=== PATIENT | male | born 1965 | race Caucasian/White ===

== ENCOUNTER 2017-01-30 07:13 | Day surgery (SDC) | payer BC ==
[2017-01-30] MEDS ORDERED: Sodium Chloride 0.9% 10 ML Syringe FLUSH PRN (07:30)
[2017-01-30] MEDS: Lactated Ringers 1,000 ML IV SCH ×3 (07:55→21:11)
[2017-01-30] MEDS ORDERED: Succinylcholine/Normal Saline 200 MG/10 ML Syringe IV ONE (08:45)
[2017-01-30] MEDS ORDERED: fentaNYL 100 MCG/2 ML SDV IV ONE (08:45)
[2017-01-30] MEDS ORDERED: cefOXitin 2 GM in Sodium Chloride 0.9% 100 ML IV ONE (08:45)
[2017-01-30] MEDS ORDERED: Propofol 200 MG/20 ML SDV IV ONE (08:45)
[2017-01-30] MEDS ORDERED: Ondansetron 4 MG/2 ML SDV IVPUSH ONE (08:45)
[2017-01-30] MEDS ORDERED: Neostigmine Methylsulfate 1 MG/ML 5 ML Syringe IV ONE (08:45)
[2017-01-30] MEDS ORDERED: Lactated Ringers 1,000 ML IV ONE (08:45)
[2017-01-30] MEDS ORDERED: Midazolam 1 MG/ML 2 ML SDV IV ONE (08:45)
[2017-01-30] MEDS ORDERED: Rocuronium 50 MG/5 ML Vial IV ONE (08:45)
[2017-01-30] MEDS ORDERED: Glycopyrrolate 1 MG Tab PO ONE (08:45)
[2017-01-30] MEDS ORDERED: Dexamethasone 4 MG/ML 5 ML MDV IVPUSH ONE (08:45)
[2017-01-30] MEDS ORDERED: Lidocaine 1% with EPINEPHrine 1:100,000 20 ML MDV INJECT ONE (09:09)
[2017-01-30] MEDS ORDERED: Bupivacaine 0.5% 30 ML SDV INJECT ONE (09:09)
[2017-01-30] MEDS ORDERED: Ondansetron 4 MG/2 ML SDV IVPUSH PRN (10:20)
--- NOTE | 2017-01-30 10:20 | PCM.OPNOTE ---
- General Post-Op/Procedure Note Date of Surgery/Procedure: 01/30/17 Operative Procedure(s): lap cholecystectomy with lysis of adhesions. 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 Complications: None Condition: Good Free Text/Narrative:: see dictation
[2017-01-30] MEDS ORDERED: Promethazine 25 MG/ML SDV IV PRN (10:32)
[2017-01-30] MEDS ORDERED: Morphine 4 MG/ML Syringe IVPUSH PRN (10:32)
[2017-01-30] MEDS ORDERED: hydrOXYzine HCl 50 MG/ML SDV IM PRN (10:32)
[2017-01-30] MEDS: Morphine 2 MG/ML Syringe IVPUSH PRN ×3 (10:55→11:15)
--- NOTE | 2017-01-30 15:06 | OR ---
DATE OF OPERATION: 01/30/2017 SURGEON: Terrence Yip MD PROCEDURE PERFORMED: Laparoscopic cholecystectomy with lysis of adhesions. PREOPERATIVE DIAGNOSIS: Gallbladder polyps. POSTOPERATIVE DIAGNOSIS: Gallbladder polyps. INDICATIONS FOR PROCEDURE: This is a 51-year-old white male who is referred with history of right upper quadrant abdominal pain. He was found to have multiple polyps in his gallbladder. He was offered and accepted laparoscopic cholecystectomy. Of note, the patient has had a right nephrectomy as well as a lower midline incision from previous abdominal surgery. 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 Multiple adhesions to the anterior abdominal wall were also identified. A total of 10 mL of a 1:1 mixture of 1% lidocaine with epinephrine and 0.5% bupivacaine was used to infiltrate the trocar sites. DESCRIPTION OF OPERATION: After an excellent general anesthetic was administered, the patient was prepped and draped in the usual sterile manner. A 1:1 mixture of 1% lidocaine with 0.5% bupivacaine was used to infiltrate the area just below the umbilicus. A 2-cm incision was then made using a #15 scalpel blade. The underlying subcu fat was bluntly dissected and 2 stay sutures of 0 Vicryl were placed on either side of the midline fascia, which was then elevated. This was then incised, and the abdominal cavity was entered. The trocar was inserted into the patient's abdomen and, after digital palpation, demonstrated clear field. The patient's abdomen was insufflated to 15 mmHg using CO2. He was placed in reverse Trendelenburg position. On inserting the scope, the patient had some adhesions on the right side, however, on the left side, this area was clear. We were able to visualize the midline. A 5-mm trocar was inserted in the midline just below the epigastrium. An additional port was placed in the right upper quadrant to facilitate our adhesiolysis. After the second port was placed, a LigaSure was used to divide the round ligament of the liver. The adhesions were carefully taken down using the LigaSure mobilizing the transverse colon, which was adhered to the anterior abdominal wall. After dissecting enough tissue free to allow insertion of our right subcostal trocars was completed, these trocars were inserted at the proximal level of the midclavicular and anterior axillary line by infiltrating with more local, making a skin incision, and then inserting our trocars. The gallbladder was then grasped and retracted in a cephalad fashion. Some filmy adhesions were taken down. The infundibulum was grasped, and the cystic duct was dissected free. There were several small finger-like vessels that were coming out. Further dissection revealed what appeared to be a right aberrant hepatic artery with several small branches. The main artery itself was noted to track along the gallbladder and then dive into the parenchyma of the right lobe of the liver. The small branches were divided with the LigaSure. The cystic duct was then clipped, 2 proximally and 1 distally, prior to transection. L- hook cautery dissection was then carried out dissecting the gallbladder free from the gallbladder fossa. The specimen was passed into a specimen bag and then delivered out through the umbilicus. The area was irrigated. There was some oozing on the liver bed, which was controlled with electrocautery. We did pack the bed with some Surgicel. After ensuring excellent hemostasis, the trocars were removed. The midline periumbilical incision was closed with a [id number] 0 Vicryl. [place] were used to close the skin. Needle, sponge, and instrument counts were reported as correct. The patient will be watched overnight just because of the adhesiolysis, to ensure that there are no any untoward events. /[id number] /ARNIEL
[2017-01-30] MEDS ORDERED: HYDROmorphone 2 MG/ML SDV IVPUSH PRN (15:44)
--- NOTE | 2017-01-30 15:47 | PCM.SN ---
- Free Text/Narrative Note: still with some abd pain but it is better. tolerating clear liquid diet. will add pain meds [place] and change to dilaudid for breakthrough pain.
[2017-01-30] MEDS: Acetaminophen/HYDROcodone 325-10 MG Tab PO PRN ×2 (17:19→21:06)
[2017-01-31] MEDS: Acetaminophen/HYDROcodone 325-10 MG Tab PO PRN ×2 (04:09→08:28)
[2017-01-31] MEDS: Lactated Ringers 1,000 ML IV SCH (05:19)
--- NOTE | 2017-01-31 07:52 | PCM.SURGPN ---
- General Info Date of Service: 01/31/17 POD#: 1 Functional Status: Reports: pain controlled, tolerating diet - Review of Systems General: Reports: No Symptoms HEENT: Reports: no symptoms Pulmonary: Reports: no symptoms Cardiovascular: Reports: No Symptoms Gastrointestinal: Reports: No symptoms - Patient Data Vitals - most recent: Last Vital Signs Temp 36.7 C 01/31/17 04:00 Pulse 62 01/31/17 04:00 Resp 18 01/31/17 04:00 BP 94/59 L 01/31/17 04:00 Pulse Ox 94 L 01/31/17 04:00 Weight - most recent: 99.201 kg I&O - last 24 hours: Intake & Output 01/30/17 01/31/17 01/31/17 22:59 06:59 14:59 Intake Total 2638 1292 Output Total 1450 0 Balance 1188 1292 Lab Results last 24 hrs: Laboratory Results - last 24 hr 01/31/17 Range/Units 06:25 WBC 10.8 (4.5-12.0) X10-3/uL RBC 4.24 L (4.30-5.75) x10(6)uL Hgb 13.6 (11.5-15.5) g/dL Hct 39.6 (30.0-51.3) % MCV 93.4 (80-96) fL MCH 32.1 (27.7-33.6) pg MCHC 34.3 (32.2-35.4) g/dL RDW 12.6 (11.5-15.5) % Plt Count 191 (125-369) X10(3)uL MPV 8.9 (7.4-10.4) fL Neut % (Auto) 78.9 (46-82) % Lymph % (Auto) 12.6 L (13-37) % Baker % (Auto) 7.7 (4-12) % Eos % (Auto) 0 L (1.0-5.0) % Baso % (Auto) 1 (0-2) % Neut # (Auto) 8.5 H (1.6-8.3) # Lymph # (Auto) 1.4 (0.6-5.0) # Baker # (Auto) 0.8 (0.0-1.3) # Eos # (Auto) 0.0 (0.0-0.8) # Baso # (Auto) 0.1 (0.0-0.2) # Med Orders - Current: Current Medications Hydrocodone Bitart/Acetaminophen ([place] 325-10 Mg) 1 tab PO Q4H PRN PRN Reason: Pain Last Admin: 01/31/17 04:09 Dose: 1 tab Hydromorphone HCl (Dilaudid) 2 mg IVPUSH Q3H PRN PRN Reason: Breakthrough Pain Lactated Ringer's (Ringers, Lactated) 1,000 mls @ 125 mls/hr IV ASDIRECTED MICHAEL Last Admin: 01/31/17 05:19 Dose: 125 mls/hr Ondansetron HCl (Zofran) 4 mg IVPUSH Q6H PRN PRN Reason: Nausea/Vomiting Sodium Chloride (Saline Flush) 10 ml FLUSH ASDIRECTED PRN PRN Reason: Keep Vein Open Discontinued Medications Bupivacaine HCl (Marcaine 0.5%) 12 ml INJECT .STK-MED ONE Stop: 01/30/17 09:10 Last Admin: 01/30/17 09:09 Dose: 12 ml Hydroxyzine HCl (Vistaril) 50 mg IM ONETIME PRN PRN Reason: Nausea/Vomiting Cefoxitin Sodium 2 gm/ Sodium (Chloride) 100 mls @ 200 mls/hr IV ONETIME ONE Stop: 01/30/17 09:14 Last Admin: 01/30/17 08:42 Dose: 200 mls/hr Lidocaine/Epinephrine (Xylocaine 1% With Epinephrine 1:100,000) 12 ml INJECT .STK-MED ONE Stop: 01/30/17 09:10 Last Admin: 01/30/17 09:09 Dose: 12 ml Morphine Sulfate (Morphine) 3 mg IVPUSH Q4H PRN PRN Reason: Pain (severe 7-10) Last Admin: 01/30/17 13:28 Dose: 3 mg Morphine Sulfate (Morphine) 2 mg IVPUSH Q3M PRN PRN Reason: Abdominal Pain Last Admin: 01/30/17 11:15 Dose: 2 mg Promethazine HCl (Phenergan) 12.5 mg IV Q4H PRN PRN Reason: Nausea/Vomiting - Exam Wound/Incisions: dressing dry and intact General: alert, oriented Lungs: Clear to auscultation, Normal respiratory effort Cardiovascular: Regular Rate, Regular Rhythm Abdomen: bowel sounds present, soft, no tenderness, no distension - Problem List & Annotations (1) S/P laparoscopic cholecystectomy SNOMED Code(s): 862035472, 03136625, 939425558 Code(s): Z90.49 - ACQUIRED ABSENCE OF OTHER SPECIFIED PARTS OF DIGESTIVE TRACT Status: Acute Current Visit: Yes - Problem List Review Problem List Initiated/Reviewed/Updated: Yes - My Orders Last 24 Hours: Active Orders 24 hr Category Date Time Status Intake and Output [RC] 06,14,22 Care 01/30/17 10:21 Active Notify Provider Vital Signs [RC] PRN Care 01/30/17 10:21 Active Oxygen Therapy [RC] PRN Care 01/30/17 10:20 Active RT Incentive Spirometry [RC] Q2HWA Care 01/30/17 10:20 Active Ready for Discharge [RC] PER UNIT ROUTINE Care 01/31/17 07:47 Ordered Vital Signs [RC] 00,04,08,12,16,20 Care 01/30/17 10:20 Active Full Liquid Diet [DIET] Diet 01/30/17 Dinner Ordered Acetaminophen/HYDROcodone [[place] 325-10 MG] Med 01/30/17 15:44 Active 1 tab PO Q4H PRN HYDROmorphone [Dilaudid] Med 01/30/17 15:44 Active 2 mg IVPUSH Q3H PRN Lactated Ringers [Ringers, Lactated] 1,000 ml Med 01/30/17 07:30 Active IV ASDIRECTED Ondansetron [Zofran] Med 01/30/17 10:20 Active 4 mg IVPUSH Q6H PRN Sodium Chloride 0.9% [Saline Flush] Med 01/30/17 07:30 Active 10 ml FLUSH ASDIRECTED PRN Peripheral IV Insertion Adult [OM.PC] Routine Oth 01/30/17 07:30 Ordered SCD [Sequential Compression Device] [OM.PC] Routine Oth 01/30/17 15:59 Ordered Sequential Compression Device [OM.PC] Routine Oth 01/30/17 07:30 Ordered Medication Orders Hydrocodone Bitart/Acetaminophen ([place] 325-10 Mg) 1 tab PO Q4H PRN PRN Reason: Pain Last Admin: 01/31/17 04:09 Dose: 1 tab Admin: 05/25/17 21:06 Dose: 1 tab Admin: 01/30/17 17:19 Dose: 1 tab Hydromorphone HCl (Dilaudid) 2 mg IVPUSH Q3H PRN PRN Reason: Breakthrough Pain Lactated Ringer's (Ringers, Lactated) 1,000 mls @ 125 mls/hr IV ASDIRECTED MICHAEL Last Admin: 01/31/17 05:19 Dose: 125 mls/hr Infusion: 01/31/17 05:11 Dose: 125 mls/hr Admin: 01/30/17 21:11 Dose: 125 mls/hr Infusion: 01/30/17 21:11 Dose: 125 mls/hr Admin: 01/30/17 13:31 Dose: 125 mls/hr Infusion: 01/30/17 13:31 Dose: 125 mls/hr Admin: 01/30/17 07:55 Dose: 125 mls/hr Ondansetron HCl (Zofran) 4 mg IVPUSH Q6H PRN PRN Reason: Nausea/Vomiting Sodium Chloride (Saline Flush) 10 ml FLUSH ASDIRECTED PRN PRN Reason: Keep Vein Open - Assessment Assessment (Free Text/Narrative):: ready for discharge - Plan Plan (Free Text/Narrative):: see discharge plan
[2017-01-31 08:53] VITALS: BP 103/59
== END 2017-01-31 09:45 | disposition home or self-care (01) ==
LOC: FB.SDS 07:13 → FB.MS 11:30 → FB.SDS 01-31 09:45
PROVIDERS: ATTEND Surgery
DX: K82.4 Cholesterolosis of gallbladder (principal); K82.8 Other specified diseases of gallbladder; E66.9 Obesity, unspecified; E78.00 Pure hypercholesterolemia, unspecified; E78.5 Hyperlipidemia, unspecified; G47.33 Obstructive sleep apnea (adult) (pediatric); K21.9 Gastro-esophageal reflux disease without esophagitis; Z85.528 Personal history of other malignant neoplasm of kidney; Z90.5 Acquired absence of kidney; Z90.49 Acquired absence of other specified parts of digestive tract; Z98.890 Other specified postprocedural states
CPT/HCPCS: 36415; 47562; 85025; 88304; A9270; J0131; J0694; J1100; J2250; J2270; J2405; J2704; J3010; J7030; J7120

== ENCOUNTER 2017-08-19 19:10 | Inpatient (IN) | payer BC ==
[2017-08-19] MEDS ORDERED: FLU Vacc QS 2017-18 (36mos UP)/PF 60 MCG/0.5 ML Syringe IM ONE (20:00)
[2017-08-19] MEDS ORDERED: Sodium Chloride 0.9% 1,000 ML IV ONE (20:43)
[2017-08-19] MEDS ORDERED: Ondansetron 4 MG/2 ML SDV IVPUSH PRN (20:50)
[2017-08-19] MEDS ORDERED: Acetaminophen 325 MG Tab PO PRN (20:51)
[2017-08-19] MEDS ORDERED: Zolpidem 5 MG Tab PO PRN (20:53)
--- NOTE | 2017-08-19 21:01 | PCM.HP ---
H&P History of Present Illness - General Date of Service: 08/19/17 Admit Problem/Dx: Admission Diagnosis/Problem Admission Diagnosis/Problem Acute diverticulitis of intestine Source of Information: Patient History Limitations: Reports: No Limitations - History of Present Illness Initial Comments - Free Text/Narative: c/o lower abd pain x 2d and fever x 1d pt with known diverticulosis, no prior h/o diverticulitis not able to work past 2d, fever, no chills, no sweats, nl BM 1d ago no n/v poor appetite went to urgent care CT showed acute diverticulitis with associated peritonitis and a small 1.5 cm abscess, no free air abd fairly soft here with good BS given 1 liter NS in urgent care, sent directly to floor for admission last colonoscopy 02/18 PMH: RCC, b/l hearing loss, diverticulosis, dyslipidemia, BMI over 30, retinal detachment, JUANA, PSH: R nephrectomy 2006, appy, lap choly 01/22, eye surgery x 5 for foreign body in eye 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[employer], never smoked, 4-8 cans beer/wk, no street drugs no regular meds, nka Left Middle Back Pain Score (Numeric/FACES): 8 - Related Data Allergies/Adverse Reactions: Allergies Allergy/AdvReac Type Severity Reaction Status Date / Time No Known Allergies Allergy Verified 01/30/17 08:26 Home Medications: Home Meds Acetaminophen/HYDROcodone [[place] 325-5 MG] 1 - 2 tab PO Q6H PRN #30 tab [Rx] Past Medical History HEENT History: Reports: Impaired Vision, Other (See Below) Other HEENT History: 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 Cardiovascular History: Reports: High Cholesterol Respiratory History: Reports: Sleep Apnea Gastrointestinal History: Reports: Diverticulosis Genitourinary History: Reports: Renal Disease, Other (See Below) Other Genitourinary History: RIGHT NEPHRECTOMY Endocrine/Metabolic History: Reports: Obesity/BMI 30+ Oncologic (Cancer) History: Reports: Renal - Past Surgical History Other HEENT Surgeries/Procedures: Lens implant to right eye Cardiovascular Surgical History: Reports: None GI Surgical History: Reports: Appendectomy, Colonoscopy Male Surgical History: Reports: Nephrectomy Social & Family History - Family History Family Medical History: Noncontributory HEENT: Reports: Hearing Impairment, Impaired Vision Cardiac: Reports: [place] Respiratory: Reports: None Musculoskeletal: Reports: Arthritis Neurological: Reports: Parkinson's Oncologic: Reports: Prostate - Tobacco Use Smoking Status *Q: Never Smoker Second Hand Smoke Exposure: No - Caffeine Use Caffeine Use: Reports: Coffee Caffeine Use Comment: one coffe daily - Alcohol Use Days Per Week of Alcohol Use: 1 Number of Drinks Per Day: 1 Total Drinks Per Week: 1 - Recreational Drug Use Recreational Drug Use: No H&P Review of Systems - Review of Systems: Review Of Systems: See Below General: Reports: Fever, Malaise, Decreased Appetite HEENT: Reports: No Symptoms Pulmonary: Reports: No Symptoms Cardiovascular: Reports: No Symptoms Gastrointestinal: Reports: Abdominal Pain Genitourinary: Reports: No Symptoms Musculoskeletal: Reports: No Symptoms Skin: Reports: No Symptoms Psychiatric: Reports: No Symptoms Neurological: Reports: No Symptoms Hematologic/Lymphatic: Reports: No Symptoms Immunologic: Reports: No Symptoms Exam - Exam Exam: See Below - Vital Signs Vital Signs: Last Vital Signs Temp 37.6 C 08/19/17 19:34 Pulse 93 08/19/17 19:34 Resp 18 08/19/17 19:34 BP 110/64 08/19/17 19:34 Pulse Ox 93 L 08/19/17 19:34 Weight: 99.337 kg - Exam General: Alert, Oriented, 4 HEENT: Conjunctiva Clear, Mucosa Moist & [place], Nares Patent, Normal Nasal Septum , Other (R exotropia) Neck: Supple Lungs: Clear to Auscultation, Normal Respiratory Effort Cardiovascular: Regular Rate, Regular Rhythm, Normal S1, Normal S2, Tachycardia. No: Systolic Murmur, Diastolic Murmur, Gallop/S3, Gallop/S4 GI/Abdominal Exam: Other (good BS x 4, 1+ tender in RLQ with less tender suprapubic and LLQ, flanks and upper abd NT, no guard, no rebound) Back Exam: Normal Inspection, Full Range of Motion, NT Extremities: Normal Inspection, Normal Range of Motion, Non-Tender, No Pedal Edema Skin: Warm, Dry, Intact Neurological: Cranial Nerves Intact, Strength Equal Bilateral, Normal Speech, Normal Tone, Sensation Intact Neuro Extensive - Mental Status: Alert, Oriented x3, Normal Mood/Affect, Normal Cognition, Memory Intact Psychiatric: Alert, Normal Affect, Normal Mood *Q Meaningful Use (ADM) - VTE *Q VTE Criteria *Q: - Stroke *Q Stroke Criteria *Q: - AMI *Q AMI Criteria *Q: - Problem List (1) Acute diverticulitis SNOMED Code(s): 954973806 ICD Code: K57.92 - DVTRCLI OF INTEST, PART UNSP, W/O PERF OR ABSCESS W/O BLEED Status: Acute Current Visit: Yes (2) Acute peritonitis SNOMED Code(s): 43249675 ICD Code: K65.0 - GENERALIZED (ACUTE) PERITONITIS Status: Acute Current Visit: Yes (3) Intra-abdominal abscess SNOMED Code(s): 76470075 ICD Code: K65.1 - PERITONEAL ABSCESS Status: Acute Current Visit: Yes Problem List Initiated/Reviewed/Updated: Yes Orders Last 24hrs: Active Orders 24 hr Category Date Time Status Patient Status [ADT] Routine ADT 08/19/17 20:43 Ordered Oxygen Therapy [RC] PRN Care 08/19/17 20:43 Ordered Oxygen Therapy [RC] PRN Care 08/19/17 20:54 Ordered Pulse Oximetry [RC] PRN Care 08/19/17 20:45 Ordered Up ad [place] [RC] ASDIRECTED Care 08/19/17 20:43 Ordered VTE/DVT Education [RC] Per Unit Routine Care 08/19/17 20:43 Ordered VTE/DVT Education [RC] Per Unit Routine Care 08/19/17 20:54 Ordered Vital Signs [RC] Q4H Care 08/19/17 20:43 Ordered Vital Signs [RC] Q4H Care 08/19/17 20:54 Ordered Nothing per Oral After Midnight Diet [DIET] Diet 08/20/17 Breakfast Ordered BASIC METABOLIC PANEL,BMP [CHEM] DAILY Lab 08/20/17 05:11 Ordered BASIC METABOLIC PANEL,BMP [CHEM] DAILY Lab 08/21/17 05:11 Ordered BASIC METABOLIC PANEL,BMP [CHEM] DAILY Lab 08/22/17 05:11 Ordered BASIC METABOLIC PANEL,BMP [CHEM] DAILY Lab 08/23/17 05:11 Ordered BASIC METABOLIC PANEL,BMP [CHEM] DAILY Lab 08/24/17 05:11 Ordered CBC WITH AUTO DIFF [HEME] DAILY Lab 08/20/17 05:11 Ordered CBC WITH AUTO DIFF [HEME] DAILY Lab 08/21/17 05:11 Ordered CBC WITH AUTO DIFF [HEME] DAILY Lab 08/22/17 05:11 Ordered CBC WITH AUTO DIFF [HEME] DAILY Lab 08/23/17 05:11 Ordered CBC WITH AUTO DIFF [HEME] DAILY Lab 08/24/17 05:11 Ordered URINALYSIS W/MICROSCOPIC [UA W/MICROSCOPIC] [URIN] Lab 08/19/17 20:53 Uncollected Routine Acetaminophen [Tylenol] Med 08/19/17 20:51 Ordered 650 mg PO Q4H PRN Ciprofloxacin in D5W [Cipro in D5W 400 MG/200 ML] 400 Med 08/19/17 21:00 Ordered mg Premix Bag 1 bag IV Q12HR Enoxaparin [Lovenox] Med 08/19/17 20:45 Ordered 40 mg SUBCUT Q24H Morphine Med 08/19/17 20:50 Ordered 4 mg IVPUSH Q2H PRN Ondansetron [Zofran] Med 08/19/17 20:50 Ordered 4 mg IVPUSH Q4H PRN Sodium Chloride 0.9% @ 125 MLS/HR (1000ml) Med 08/19/17 20:45 Ordered Sodium Chloride 0.9% [Normal Saline] 1,000 ml IV ASDIRECTED Sodium Chloride 0.9% [Normal Saline] 1,000 ml Med 08/19/17 20:43 Ordered IV .BOLUS Zolpidem [Ambien] Med 08/19/17 20:53 Ordered 5 mg PO BEDTIME PRN metroNIDAZOLE/Normal Saline [Flagyl 500 MG in NS 100 ML Med 08/19/17 21:00 Ordered ] 500 mg Premix Bag 1 bag IV Q8H Resuscitation Status Routine Resus Stat 08/19/17 20:43 Ordered Medication Orders Acetaminophen (Tylenol) 650 mg PO Q4H PRN PRN Reason: Fever Enoxaparin Sodium (Lovenox) 40 mg SUBCUT Q24H MICHAEL Sodium Chloride (Normal Saline) 1,000 mls @ 125 mls/hr IV ASDIRECTED MICHAEL Sodium Chloride (Normal Saline) 1,000 mls @ 999 mls/hr IV .BOLUS ONE Stop: 08/19/17 21:43 Ciprofloxacin/Dextrose 400 mg/ (Premix) 200 mls @ 200 mls/hr IV Q12HR MICHAEL Metronidazole 500 mg/ Premix 100 mls @ 100 mls/hr IV Q8H MICHAEL Morphine Sulfate (Morphine) 4 mg IVPUSH Q2H PRN PRN Reason: Pain Ondansetron HCl (Zofran) 4 mg IVPUSH Q4H PRN PRN Reason: Nausea/Vomiting Assessment/Plan Comment:: admit, IVF, cipro and flagyl, pain management with MS, surgery consult in AM, plan d/w pt and
[2017-08-19] MEDS: Morphine 4 MG/ML Syringe IVPUSH PRN (21:17)
[2017-08-19] MEDS: Enoxaparin 40 MG/0.4 ML Syringe SUBCUT SCH (21:23)
[2017-08-19] MEDS: Ciprofloxacin in D5W 400 MG in Premix Bag 1 BAG IV SCH ×2 (21:25)
[2017-08-19] MEDS: Sodium Chloride 0.9% 10 ML Syringe FLUSH PRN (22:34)
[2017-08-19] MEDS: metroNIDAZOLE/Normal Saline 500 MG in Premix Bag 1 BAG IV SCH (22:34)
[2017-08-20] MEDS: Sodium Chloride 0.9% 1,000 ML IV SCH ×3 (00:05→16:51)
[2017-08-20] MEDS: metroNIDAZOLE/Normal Saline 500 MG in Premix Bag 1 BAG IV SCH ×3 (05:48→22:31)
[2017-08-20] MEDS: Morphine 4 MG/ML Syringe IVPUSH PRN ×3 (06:12→16:18)
[2017-08-20] MEDS: Ciprofloxacin in D5W 400 MG in Premix Bag 1 BAG IV SCH ×4 (08:46→21:12)
--- NOTE | 2017-08-20 09:25 | PCM.HP ---
H&P History of Present Illness - General Date of Service: 08/20/17 Source of Information: Patient, Old Records History Limitations: Reports: No Limitations - History of Present Illness Initial Comments - Free Text/Narative: This is a 52-year-old male patient with known history of diverticulosis. 2 days ago he started having some chills and some abdominal pain. He says he got worse and came to the walk-in clinic here at [place]. His diagnosed with diverticulitis. He was seen again in the ER and had a CAT scan that showed diverticulitis with localized paranasal some minimal collection of fluid but no gross abscess. Patient denies dysuria, pyuria, hematuria, nasal congestion, vomiting, nausea, diarrhea, hematochezia or melena. Nominal pain is a lower abdominal bilateral the same. 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 Cardiovascular History: Reports: High Cholesterol Respiratory History: Reports: Sleep Apnea Gastrointestinal History: Reports: Diverticulosis Genitourinary History: Reports: Renal Disease, Other (See Below) Other Genitourinary History: RIGHT NEPHRECTOMY Endocrine/Metabolic History: Reports: Obesity/BMI 30+ Oncologic (Cancer) History: Reports: Renal - Past Surgical History Other HEENT Surgeries/Procedures: Lens implant to right eye Cardiovascular Surgical History: Reports: None GI Surgical History: Reports: Appendectomy, Colonoscopy Male Surgical History: Reports: Nephrectomy Social & Family History - Family History Family Medical History: Noncontributory HEENT: Reports: Hearing Impairment, Impaired Vision Cardiac: Reports: ND Respiratory: Reports: None Musculoskeletal: Reports: Arthritis Neurological: Reports: Parkinson's Oncologic: Reports: Prostate - Tobacco Use Smoking Status *Q: Never Smoker Second Hand Smoke Exposure: No - Caffeine Use Caffeine Use: Reports: Coffee Caffeine Use Comment: one coffe daily - Alcohol Use Days Per Week of Alcohol Use: 1 Number of Drinks Per Day: 1 Total Drinks Per Week: 1 - Recreational Drug Use Recreational Drug Use: No H&P Review of Systems - Review of Systems: Review Of Systems: See Below General: Reports: Fever, Chills, Malaise, Decreased Appetite HEENT: Reports: No Symptoms Pulmonary: Reports: No Symptoms Cardiovascular: Reports: No Symptoms Gastrointestinal: Reports: Abdominal Pain Genitourinary: Reports: No Symptoms Musculoskeletal: Reports: No Symptoms Skin: Reports: No Symptoms Psychiatric: Reports: No Symptoms Neurological: Reports: No Symptoms Hematologic/Lymphatic: Reports: No Symptoms Immunologic: Reports: No Symptoms Exam - Exam Exam: See Below - Vital Signs Vital Signs: Last Vital Signs Temp 98.2 F 08/20/17 04:00 Pulse 90 08/20/17 04:00 Resp 18 08/20/17 04:00 BP 104/62 08/20/17 04:00 Pulse Ox 94 L 08/20/17 04:00 Weight: 218 lb - Exam General: Alert, Oriented, Cooperative HEENT: PERRLA, Hearing Intact, Posterior Pharynx Clear, Pupils Equal, TMs Clear Neck: Supple, Trachea Midline Lungs: Clear to Auscultation, Normal Respiratory Effort. No: Crackles, Rales, Rhonchi Cardiovascular: Regular Rate, Regular Rhythm, Normal S1, Normal S2. No: Systolic Murmur, Diastolic Murmur GI/Abdominal Exam: No Organomegaly, No Distention, No Mass, Rigid (Mild), Tender. No: Rebound Extremities: Normal Inspection, Normal Range of Motion, Non-Tender, No Pedal Edema Skin: Warm, Dry, Intact Neurological: Normal Speech, Normal Tone Neuro Extensive - Mental Status: Alert, Oriented x3, Normal Mood/Affect, Normal Cognition Psychiatric: Alert, Normal Affect, Normal Mood - Patient Data Lab Results Last 24 hrs: Laboratory Results - last 24 hr 08/19/17 08/20/17 08/20/17 Range/Units 19:30 06:20 06:20 WBC 14.6 H (4.5-12.0) X10-3/uL RBC 4.14 L (4.30-5.75) x10(6)uL Hgb 13.6 (11.5-15.5) g/dL Hct 38.4 (30.0-51.3) % MCV 92.6 (80-96) fL MCH 32.7 (27.7-33.6) pg MCHC 35.3 (32.2-35.4) g/dL RDW 12.6 (11.5-15.5) % Plt Count 156 (125-369) X10(3)uL MPV 8.9 (7.4-10.4) fL Neut % (Auto) 85.3 H (46-82) % Lymph % (Auto) 7.2 L (13-37) % [place] % (Auto) 7.1 (4-12) % Eos % (Auto) 0 L (1.0-5.0) % Baso % (Auto) 0 (0-2) % Neut # (Auto) 12.6 H (1.6-8.3) # Lymph # (Auto) 1.0 (0.6-5.0) # [place] # (Auto) 1.0 (0.0-1.3) # Eos # (Auto) 0.0 (0.0-0.8) # Baso # (Auto) 0.0 (0.0-0.2) # Sodium 139 (135-145) mmol/L Potassium 3.7 (3.5-5.3) mmol/L Chloride 106 (100-110) mmol/L Carbon Dioxide 24 (21-32) mmol/L BUN 17 (7-18) mg/dL Creatinine 1.4 H (0.70-1.30) mg/dL Est Cr Clr Drug Dosing 65.74 mL/min Estimated GFR (MDRD) 53 L (>60) BUN/Creatinine Ratio 12.1 (9-20) Glucose 124 H (80-116) mg/dL Calcium 8.1 L (8.6-10.2) mg/dL Urine Color Yellow (YELLOW) Urine Appearance Cloudy (CLEAR) Urine pH 6.0 (5.0-6.5) Ur Specific [place] 1.025 (1.010-1.025) Urine Protein Trace (NEGATIVE) mg/dL Urine Glucose (UA) Normal (NEGATIVE) mg/dL Urine Ketones 50 H (NEGATIVE) mg/dL Urine Occult Blood Large H (NEGATIVE) Urine Nitrite Negative (NEGATIVE) Urine Bilirubin Small H (NEGATIVE) Urine Urobilinogen 4 H (NEGATIVE) mg/dL Ur Leukocyte Esterase Negative (NEGATIVE) Urine RBC 5-10 (0) Urine WBC 0-5 (0) Ur Squamous Epith Cells Rare (NS,R,O) Amorphous Sediment Few Urine Bacteria Few H (NS) Result Diagrams: 08/20/17 06:20 08/20/17 06:20 *Q Meaningful Use (ADM) - VTE *Q VTE Criteria *Q: - Stroke *Q Stroke Criteria *Q: - AMI *Q AMI Criteria *Q: - Problem List (1) Acute diverticulitis SNOMED Code(s): 392383523 ICD Code: K57.92 - DVTRCLI OF INTEST, PART UNSP, W/O PERF OR ABSCESS W/O BLEED Status: Acute Current Visit: Yes (2) Acute peritonitis SNOMED Code(s): 48452619 ICD Code: K65.0 - GENERALIZED (ACUTE) PERITONITIS Status: Acute Current Visit: Yes Problem List Initiated/Reviewed/Updated: Yes Orders Last 24hrs: Active Orders 24 hr Category Date Time Status Patient Status [ADT] Routine ADT 08/19/17 20:43 Active Notify Provider Consults [RC] ASDIRECTED Care 08/19/17 21:06 Active Oxygen Therapy [RC] PRN Care 08/19/17 20:54 Active Up ad Leilani [RC] ASDIRECTED Care 08/19/17 20:43 Active VTE/DVT Education [RC] Per Unit Routine Care 08/19/17 20:43 Active Vital Signs [RC] Q4H Care 08/19/17 20:54 Active Nothing per Oral After Midnight Diet [DIET] Diet 08/20/17 Breakfast Active BASIC METABOLIC PANEL,BMP [CHEM] DAILY Lab 08/21/17 05:11 Ordered BASIC METABOLIC PANEL,BMP [CHEM] DAILY Lab 08/22/17 05:11 Ordered BASIC METABOLIC PANEL,BMP [CHEM] DAILY Lab 08/23/17 05:11 Ordered BASIC METABOLIC PANEL,BMP [CHEM] DAILY Lab 08/24/17 05:11 Ordered CBC WITH AUTO DIFF [HEME] DAILY Lab 08/21/17 05:11 Ordered CBC WITH AUTO DIFF [HEME] DAILY Lab 08/22/17 05:11 Ordered CBC WITH AUTO DIFF [HEME] DAILY Lab 08/23/17 05:11 Ordered CBC WITH AUTO DIFF [HEME] DAILY Lab 08/24/17 05:11 Ordered Acetaminophen [Tylenol] Med 08/19/17 20:51 Active 650 mg PO Q4H PRN Ciprofloxacin in D5W [Cipro in D5W 400 MG/200 ML] 400 Med 08/19/17 21:00 Active mg Premix Bag 1 bag IV Q12H Enoxaparin [Lovenox] Med 08/19/17 21:00 Active 40 mg SUBCUT Q24H Morphine Med 08/19/17 20:50 Active 4 mg IVPUSH Q2H PRN Ondansetron [Zofran] Med 08/19/17 20:50 Active 4 mg IVPUSH Q4H PRN Sodium Chloride 0.9% [Normal Saline] 1,000 ml Med 08/19/17 20:45 Active IV ASDIRECTED Sodium Chloride 0.9% [Saline Flush] Med 08/19/17 22:16 Active 10 ml FLUSH ASDIRECTED PRN Zolpidem [Ambien] Med 08/19/17 20:53 Active 5 mg PO BEDTIME PRN metroNIDAZOLE/Normal Saline [Flagyl 500 MG in NS 100 ML Med 08/19/17 22:00 Active ] 500 mg Premix Bag 1 bag IV Q8H Resuscitation Status Routine Resus Stat 08/19/17 20:43 Ordered Medication Orders Acetaminophen (Tylenol) 650 mg PO Q4H PRN PRN Reason: Fever Enoxaparin Sodium (Lovenox) 40 mg SUBCUT Q24H [facility] Last Admin: 08/19/17 21:23 Dose: 40 mg Sodium Chloride (Normal Saline) 1,000 mls @ 125 mls/hr IV ASDIRECTED [facility] Last Admin: 08/20/17 08:50 Dose: 125 mls/hr Infusion: 08/20/17 08:05 Dose: 125 mls/hr Admin: 08/20/17 00:05 Dose: 125 mls/hr Ciprofloxacin/Dextrose 400 mg/ (Premix) 200 mls @ 200 mls/hr IV Q12H [facility] Last Admin: 08/20/17 08:46 Dose: 200 mls/hr Infusion: 08/19/17 22:25 Dose: 200 mls/hr Admin: 08/19/17 21:25 Dose: 200 mls/hr Metronidazole 500 mg/ Premix 100 mls @ 100 mls/hr IV Q8H [facility] Last Admin: 08/20/17 05:48 Dose: 100 mls/hr Infusion: 08/19/17 23:34 Dose: 100 mls/hr Admin: 08/19/17 22:34 Dose: 100 mls/hr Morphine Sulfate (Morphine) 4 mg IVPUSH Q2H PRN PRN Reason: Pain Last Admin: 08/20/17 06:12 Dose: 4 mg Admin: 08/19/17 21:17 Dose: 4 mg Ondansetron HCl (Zofran) 4 mg IVPUSH Q4H PRN PRN Reason: Nausea/Vomiting Sodium Chloride (Saline Flush) 10 ml FLUSH ASDIRECTED PRN PRN Reason: Keep Vein Open Last Admin: 08/19/17 22:34 Dose: 10 ml Zolpidem Tartrate (Ambien) 5 mg PO BEDTIME PRN PRN Reason: Sleep Assessment/Plan Comment:: 1. Admit the patient. 2. IV antibiotics and fluids. 3. Pain management 4. Consult surgery. 5. Regular diet 6. Up ad leilani.
--- NOTE | 2017-08-20 11:56 | PCM.CONS ---
H&P History of Present Illness - General Date of Service: 08/20/17 Admit Problem/Dx: Admission Diagnosis/Problem Admission Diagnosis/Problem Acute diverticulitis of intestine History Limitations: Reports: No Limitations - History of Present Illness Initial Comments - Free Text/Narative: 52 yo wm with a hx of abd pain for the past few days. This go progressively worse. Pain located in the lower abd. Was accompanied by some chills as well. noted to have an elevated wbc. CT scan demonstrated some sigmoid diverticulitis , with fluid collection. no free air. no overt abscess. admitted with iv antibiotics. 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 Cardiovascular History: Reports: High Cholesterol Respiratory History: Reports: Sleep Apnea Gastrointestinal History: Reports: Diverticulosis Genitourinary History: Reports: Renal Disease, Other (See Below) Other Genitourinary History: RIGHT NEPHRECTOMY Endocrine/Metabolic History: Reports: Obesity/BMI 30+ Oncologic (Cancer) History: Reports: Renal - Past Surgical History Other HEENT Surgeries/Procedures: Lens implant to right eye Cardiovascular Surgical History: Reports: None GI Surgical History: Reports: Appendectomy, Colonoscopy Male Surgical History: Reports: Nephrectomy Social & Family History - Family History Family Medical History: Noncontributory HEENT: Reports: Hearing Impairment, Impaired Vision Cardiac: Reports: DC Respiratory: Reports: None Musculoskeletal: Reports: Arthritis Neurological: Reports: Parkinson's Oncologic: Reports: Prostate - Tobacco Use Smoking Status *Q: Never Smoker Second Hand Smoke Exposure: No - Caffeine Use Caffeine Use: Reports: Coffee Caffeine Use Comment: one coffe daily - Alcohol Use Days Per Week of Alcohol Use: 1 Number of Drinks Per Day: 1 Total Drinks Per Week: 1 - Recreational Drug Use Recreational Drug Use: No H&P Review of Systems - Review of Systems: Review Of Systems: See Below General: Reports: Chills Pulmonary: Reports: No Symptoms Cardiovascular: Reports: No Symptoms Gastrointestinal: Reports: Abdominal Pain Genitourinary: Reports: No Symptoms Musculoskeletal: Reports: Back Pain Exam - Exam Exam: See Below - Vital Signs Vital Signs: Last Vital Signs Temp 37.6 C 08/20/17 08:45 Pulse 85 08/20/17 08:45 Resp 20 08/20/17 08:45 BP 115/78 08/20/17 08:45 Pulse Ox 94 L 08/20/17 08:45 Weight: 98.883 kg - Exam General: Alert, Oriented, Cooperative Lungs: Clear to Auscultation, Normal Respiratory Effort Cardiovascular: Regular Rate, Regular Rhythm GI/Abdominal Exam: Normal Bowel Sounds, Tender (lower abdomen ). No: Guarding, Rigid, Rebound - Patient Data Lab Results Last 24 hrs: Laboratory Results - last 24 hr 08/19/17 08/20/17 08/20/17 Range/Units 19:30 06:20 06:20 WBC 14.6 H (4.5-12.0) X10-3/uL RBC 4.14 L (4.30-5.75) x10(6)uL Hgb 13.6 (11.5-15.5) g/dL Hct 38.4 (30.0-51.3) % MCV 92.6 (80-96) fL MCH 32.7 (27.7-33.6) pg MCHC 35.3 (32.2-35.4) g/dL RDW 12.6 (11.5-15.5) % Plt Count 156 (125-369) X10(3)uL MPV 8.9 (7.4-10.4) fL Neut % (Auto) 85.3 H (46-82) % Lymph % (Auto) 7.2 L (13-37) % [place] % (Auto) 7.1 (4-12) % Eos % (Auto) 0 L (1.0-5.0) % Baso % (Auto) 0 (0-2) % Neut # (Auto) 12.6 H (1.6-8.3) # Lymph # (Auto) 1.0 (0.6-5.0) # [place] # (Auto) 1.0 (0.0-1.3) # Eos # (Auto) 0.0 (0.0-0.8) # Baso # (Auto) 0.0 (0.0-0.2) # Sodium 139 (135-145) mmol/L Potassium 3.7 (3.5-5.3) mmol/L Chloride 106 (100-110) mmol/L Carbon Dioxide 24 (21-32) mmol/L BUN 17 (7-18) mg/dL Creatinine 1.4 H (0.70-1.30) mg/dL Est Cr Clr Drug Dosing 65.74 mL/min Estimated GFR (MDRD) 53 L (>60) BUN/Creatinine Ratio 12.1 (9-20) Glucose 124 H (80-116) mg/dL Calcium 8.1 L (8.6-10.2) mg/dL Urine Color Yellow (YELLOW) Urine Appearance Cloudy (CLEAR) Urine pH 6.0 (5.0-6.5) Ur Specific [place] 1.025 (1.010-1.025) Urine Protein Trace (NEGATIVE) mg/dL Urine Glucose (UA) Normal (NEGATIVE) mg/dL Urine Ketones 50 H (NEGATIVE) mg/dL Urine Occult Blood Large H (NEGATIVE) Urine Nitrite Negative (NEGATIVE) Urine Bilirubin Small H (NEGATIVE) Urine Urobilinogen 4 H (NEGATIVE) mg/dL Ur Leukocyte Esterase Negative (NEGATIVE) Urine RBC 5-10 (0) Urine WBC 0-5 (0) Ur Squamous Epith Cells Rare (NS,R,O) Amorphous Sediment Few Urine Bacteria Few H (NS) Result Diagrams: 08/20/17 06:20 08/20/17 06:20 Consult PN Assessment/Plan Procedures: Procedures ANESTH SURG UPPER ABDOMEN (01/30/17) COMPLETE CBC W/AUTO DIFF WBC (01/30/17) ECHO EXAM OF ABDOMEN (01/20/17) LAPAROSCOPIC CHOLECYSTECTOMY (01/30/17) ROUTINE VENIPUNCTURE (01/30/17) TISSUE EXAM BY PATHOLOGIST (01/30/17) X-RAY EXAM OF WRIST (12/28/15) (1) Acute diverticulitis SNOMED Code(s): 154617416 Code(s): K57.92 - DVTRCLI OF INTEST, PART UNSP, W/O PERF OR ABSCESS W/O BLEED Current Visit: Yes Problem List Initiated/Reviewed/Updated: Yes Plan: agree with current treatment plan. antibiotics should lead to improvement. will follow with you.
[2017-08-20] MEDS: Enoxaparin 40 MG/0.4 ML Syringe SUBCUT SCH (21:14)
[2017-08-21] MEDS: Sodium Chloride 0.9% 1,000 ML IV SCH (02:47)
[2017-08-21] MEDS: metroNIDAZOLE/Normal Saline 500 MG in Premix Bag 1 BAG IV SCH ×3 (06:07→22:17)
--- NOTE | 2017-08-21 09:13 | PCM.PN ---
- General Info Date of Service: 08/21/17 Admission Dx/Problem (Free Text): Patient states that his abdominal pain is much improved. He was doing well last night but this morning felt nauseated for the first time. Still some fevers and chills. He was given Zofran for the nausea. He had a normal BM today without blood. He says he is drinking some and would like to try some food. - Patient Data Vitals - Most Recent: Last Vital Signs Temp 97.9 F 08/21/17 02:00 Pulse 87 08/21/17 02:00 Resp 18 08/21/17 02:00 BP 108/75 08/21/17 02:00 Pulse Ox 94 L 08/21/17 02:00 Weight - Most Recent: 224 lb 8 oz I&O - Last 24 Hours: Intake & Output 08/20/17 08/21/17 08/21/17 22:59 06:59 14:59 Intake Total 1382 917 Output Total 300 700 Balance 1082 217 Lab Results Last 24 Hours: Laboratory Results - last 24 hr 08/21/17 08/21/17 Range/Units 06:25 06:25 WBC 9.6 (4.5-12.0) X10-3/uL RBC 4.21 L (4.30-5.75) x10(6)uL Hgb 13.6 (11.5-15.5) g/dL Hct 39.4 (30.0-51.3) % MCV 93.4 (80-96) fL MCH 32.2 (27.7-33.6) pg MCHC 34.5 (32.2-35.4) g/dL RDW 12.4 (11.5-15.5) % Plt Count 176 (125-369) X10(3)uL MPV 9.1 (7.4-10.4) fL Neut % (Auto) 76.3 (46-82) % Lymph % (Auto) 15.2 (13-37) % [place] % (Auto) 7.0 (4-12) % Eos % (Auto) 1 (1.0-5.0) % Baso % (Auto) 0 (0-2) % Neut # (Auto) 7.3 (1.6-8.3) # Lymph # (Auto) 1.5 (0.6-5.0) # [place] # (Auto) 0.7 (0.0-1.3) # Eos # (Auto) 0.1 (0.0-0.8) # Baso # (Auto) 0.0 (0.0-0.2) # Sodium 139 (135-145) mmol/L Potassium 3.6 (3.5-5.3) mmol/L Chloride 106 (100-110) mmol/L Carbon Dioxide 24 (21-32) mmol/L BUN 13 (7-18) mg/dL Creatinine 1.3 (0.70-1.30) mg/dL Est Cr Clr Drug Dosing 70.79 mL/min Estimated GFR (MDRD) 58 L (>60) BUN/Creatinine Ratio 10.0 (9-20) Glucose 106 (80-116) mg/dL Calcium 8.3 L (8.6-10.2) mg/dL Med Orders - Current: Current Medications Acetaminophen (Tylenol) 650 mg PO Q4H PRN PRN Reason: Fever Enoxaparin Sodium (Lovenox) 40 mg SUBCUT Q24H [facility] Last Admin: 08/20/17 21:14 Dose: 40 mg Sodium Chloride (Normal Saline) 1,000 mls @ 125 mls/hr IV ASDIRECTED [facility] Last Admin: 08/21/17 02:47 Dose: 125 mls/hr Ciprofloxacin/Dextrose 400 mg/ (Premix) 200 mls @ 200 mls/hr IV Q12H [facility] Last Admin: 08/20/17 21:12 Dose: 200 mls/hr Metronidazole 500 mg/ Premix 100 mls @ 100 mls/hr IV Q8H [facility] Last Admin: 08/21/17 06:07 Dose: 100 mls/hr Morphine Sulfate (Morphine) 4 mg IVPUSH Q2H PRN PRN Reason: Pain Last Admin: 08/20/17 16:18 Dose: 4 mg Ondansetron HCl (Zofran) 4 mg IVPUSH Q4H PRN PRN Reason: Nausea/Vomiting Last Admin: 08/21/17 07:21 Dose: 4 mg Sodium Chloride (Saline Flush) 10 ml FLUSH ASDIRECTED PRN PRN Reason: Keep Vein Open Last Admin: 08/19/17 22:34 Dose: 10 ml Zolpidem Tartrate (Ambien) 5 mg PO BEDTIME PRN PRN Reason: Sleep Discontinued Medications Sodium Chloride (Normal Saline) 1,000 mls @ 999 mls/hr IV .BOLUS ONE Stop: 08/19/17 21:43 Last Admin: 08/19/17 20:05 Dose: 999 mls/hr Influenza Virus Vaccine (Pharmacy To Dose - Influenza Vaccine) 1 each IM ONETIME ONE Stop: 08/19/17 19:46 Influenza Virus Vaccine (Fluzone Quad [id number]) 60 mcg IM .ONCE ONE Stop: 08/19/17 20:01 - Exam General: Alert, Oriented, Cooperative Lungs: Normal Respiratory Effort GI/Abdominal Exam: Normal Bowel Sounds, Non-Tender, No Organomegaly, No Abnormal Bruit, No Mass - Problem List & Annotations (1) Acute diverticulitis SNOMED Code(s): 515340680 Code(s): K57.92 - DVTRCLI OF INTEST, PART UNSP, W/O PERF OR ABSCESS W/O BLEED Status: Acute Current Visit: Yes (2) Acute peritonitis SNOMED Code(s): 06555071 Code(s): K65.0 - GENERALIZED (ACUTE) PERITONITIS Status: Acute Current Visit: Yes - Problem List Review Problem List Initiated/Reviewed/Updated: Yes - My Orders Last 24 Hours: My Active Orders 08/20/17 09:29 Consult to Physician [CONS] Routine 08/21/17 Lunch Regular Diet [DIET] - Plan Plan:: 1. Advance diet as tolerated 2. Continue IV antibiotics 3. Up in chair and ambulating frequently 4. Change IV fluids to D5 half-normal saline.
--- NOTE | 2017-08-21 09:42 | PCM.SURGPN ---
- General Info Date of Service: 08/21/17 - Review of Systems General: Denies: Fever Gastrointestinal: Reports: Nausea, Other (abd pain is now intermitent is better. ) - Patient Data Vitals - Most Recent: Last Vital Signs Temp 36.6 C 08/21/17 02:00 Pulse 87 08/21/17 02:00 Resp 18 08/21/17 02:00 BP 108/75 08/21/17 02:00 Pulse Ox 94 L 08/21/17 02:00 Weight - Most Recent: 101.831 kg I&O - Last 24 Hours: Intake & Output 08/20/17 08/21/17 08/21/17 22:59 06:59 14:59 Intake Total 1382 917 Output Total 300 700 Balance 1082 217 Lab Results Last 24 Hrs: Laboratory Results - last 24 hr 08/21/17 08/21/17 Range/Units 06:25 06:25 WBC 9.6 (4.5-12.0) X10-3/uL RBC 4.21 L (4.30-5.75) x10(6)uL Hgb 13.6 (11.5-15.5) g/dL Hct 39.4 (30.0-51.3) % MCV 93.4 (80-96) fL MCH 32.2 (27.7-33.6) pg MCHC 34.5 (32.2-35.4) g/dL RDW 12.4 (11.5-15.5) % Plt Count 176 (125-369) X10(3)uL MPV 9.1 (7.4-10.4) fL Neut % (Auto) 76.3 (46-82) % Lymph % (Auto) 15.2 (13-37) % [place] % (Auto) 7.0 (4-12) % Eos % (Auto) 1 (1.0-5.0) % Baso % (Auto) 0 (0-2) % Neut # (Auto) 7.3 (1.6-8.3) # Lymph # (Auto) 1.5 (0.6-5.0) # [place] # (Auto) 0.7 (0.0-1.3) # Eos # (Auto) 0.1 (0.0-0.8) # Baso # (Auto) 0.0 (0.0-0.2) # Sodium 139 (135-145) mmol/L Potassium 3.6 (3.5-5.3) mmol/L Chloride 106 (100-110) mmol/L Carbon Dioxide 24 (21-32) mmol/L BUN 13 (7-18) mg/dL Creatinine 1.3 (0.70-1.30) mg/dL Est Cr Clr Drug Dosing 70.79 mL/min Estimated GFR (MDRD) 58 L (>60) BUN/Creatinine Ratio 10.0 (9-20) Glucose 106 (80-116) mg/dL Calcium 8.3 L (8.6-10.2) mg/dL Med Orders - Current: Current Medications Acetaminophen (Tylenol) 650 mg PO Q4H PRN PRN Reason: Fever Enoxaparin Sodium (Lovenox) 40 mg SUBCUT Q24H [facility] Last Admin: 08/20/17 21:14 Dose: 40 mg Ciprofloxacin/Dextrose 400 mg/ (Premix) 200 mls @ 200 mls/hr IV Q12H [facility] Last Admin: 08/20/17 21:12 Dose: 200 mls/hr Metronidazole 500 mg/ Premix 100 mls @ 100 mls/hr IV Q8H [facility] Last Admin: 08/21/17 06:07 Dose: 100 mls/hr Potassium Chloride/Dextrose/Sod Cl (D5 1/2 Ns W/ 10 Meq/L Kcl) 1,000 mls @ 125 mls/hr IV ASDIRECTED [facility] Morphine Sulfate (Morphine) 4 mg IVPUSH Q2H PRN PRN Reason: Pain Last Admin: 08/20/17 16:18 Dose: 4 mg Ondansetron HCl (Zofran) 4 mg IVPUSH Q4H PRN PRN Reason: Nausea/Vomiting Last Admin: 08/21/17 07:21 Dose: 4 mg Sodium Chloride (Saline Flush) 10 ml FLUSH ASDIRECTED PRN PRN Reason: Keep Vein Open Last Admin: 08/19/17 22:34 Dose: 10 ml Zolpidem Tartrate (Ambien) 5 mg PO BEDTIME PRN PRN Reason: Sleep Discontinued Medications Sodium Chloride (Normal Saline) 1,000 mls @ 125 mls/hr IV ASDIRECTED [facility] Last Admin: 08/21/17 02:47 Dose: 125 mls/hr Sodium Chloride (Normal Saline) 1,000 mls @ 999 mls/hr IV .BOLUS ONE Stop: 08/19/17 21:43 Last Admin: 08/19/17 20:05 Dose: 999 mls/hr Influenza Virus Vaccine (Pharmacy To Dose - Influenza Vaccine) 1 each IM ONETIME ONE Stop: 08/19/17 19:46 Influenza Virus Vaccine (Fluzone Quad [id number]) 60 mcg IM .ONCE ONE Stop: 08/19/17 20:01 - Exam General: Alert, Oriented Lungs: Clear to Auscultation, Normal Respiratory Effort Cardiovascular: Regular Rate, Regular Rhythm GI/Abdominal Exam: Normal Bowel Sounds, Soft, Tender (better ) Skin: Warm, Dry, Intact - Problem List & Annotations (1) Acute diverticulitis SNOMED Code(s): 533656492 Code(s): K57.92 - DVTRCLI OF INTEST, PART UNSP, W/O PERF OR ABSCESS W/O BLEED Status: Acute Current Visit: Yes Annotation/Comment:: 08/21 resolving - Problem List Review Problem List Initiated/Reviewed/Updated: Yes - My Orders Last 24 Hours: Active Orders 24 hr Category Date Time Status Consult to Physician [CONS] Routine Cons 08/20/17 09:29 Ordered Full Liquid Diet [DIET] Diet 08/21/17 Lunch Ordered BASIC METABOLIC PANEL,BMP [CHEM] DAILY Lab 08/22/17 05:11 Ordered BASIC METABOLIC PANEL,BMP [CHEM] DAILY Lab 08/23/17 05:11 Ordered BASIC METABOLIC PANEL,BMP [CHEM] DAILY Lab 08/24/17 05:11 Ordered CBC WITH AUTO DIFF [HEME] DAILY Lab 08/22/17 05:11 Ordered CBC WITH AUTO DIFF [HEME] DAILY Lab 08/23/17 05:11 Ordered CBC WITH AUTO DIFF [HEME] DAILY Lab 08/24/17 05:11 Ordered D5 1/2 NS w/ 10 mEq/L KCl 1,000 ml Med 08/21/17 09:15 Ordered IV ASDIRECTED Convert IV to Saline Lock [OM.PC] Routine Oth 08/21/17 09:39 Ordered Medication Orders Acetaminophen (Tylenol) 650 mg PO Q4H PRN PRN Reason: Fever Enoxaparin Sodium (Lovenox) 40 mg SUBCUT Q24H [facility] Last Admin: 08/20/17 21:14 Dose: 40 mg Admin: 08/19/17 21:23 Dose: 40 mg Ciprofloxacin/Dextrose 400 mg/ (Premix) 200 mls @ 200 mls/hr IV Q12H [facility] Last Admin: 08/20/17 21:12 Dose: 200 mls/hr Infusion: 08/20/17 09:46 Dose: 200 mls/hr Admin: 08/20/17 08:46 Dose: 200 mls/hr Infusion: 08/19/17 22:25 Dose: 200 mls/hr Admin: 08/19/17 21:25 Dose: 200 mls/hr Metronidazole 500 mg/ Premix 100 mls @ 100 mls/hr IV Q8H [facility] Last Admin: 08/21/17 06:07 Dose: 100 mls/hr Infusion: 08/20/17 23:31 Dose: 100 mls/hr Admin: 08/20/17 22:31 Dose: 100 mls/hr Infusion: 08/20/17 14:44 Dose: 100 mls/hr Admin: 08/20/17 13:44 Dose: 100 mls/hr Infusion: 08/20/17 06:48 Dose: 100 mls/hr Admin: 08/20/17 05:48 Dose: 100 mls/hr Infusion: 08/19/17 23:34 Dose: 100 mls/hr Admin: 08/19/17 22:34 Dose: 100 mls/hr Potassium Chloride/Dextrose/Sod Cl (D5 1/2 Ns W/ 10 Meq/L Kcl) 1,000 mls @ 125 mls/hr IV ASDIRECTED [facility] Morphine Sulfate (Morphine) 4 mg IVPUSH Q2H PRN PRN Reason: Pain Last Admin: 08/20/17 16:18 Dose: 4 mg Admin: 08/20/17 10:48 Dose: 4 mg Admin: 08/20/17 06:12 Dose: 4 mg Admin: 08/19/17 21:17 Dose: 4 mg Ondansetron HCl (Zofran) 4 mg IVPUSH Q4H PRN PRN Reason: Nausea/Vomiting Last Admin: 08/21/17 07:21 Dose: 4 mg Sodium Chloride (Saline Flush) 10 ml FLUSH ASDIRECTED PRN PRN Reason: Keep Vein Open Last Admin: 08/19/17 22:34 Dose: 10 ml Zolpidem Tartrate (Ambien) 5 mg PO BEDTIME PRN PRN Reason: Sleep - Plan Plan (Free Text/Narrative):: advance diet to low residue saline lock iv will probably be ready for discharge next 24 hrs would convert to oral cipro and flagyl at that time.
[2017-08-21] MEDS ORDERED: D5 1/2 NS w/ 10 mEq/L KCl 1,000 ML IV SCH (10:00)
[2017-08-21] MEDS: Sodium Chloride 0.9% 10 ML Syringe FLUSH PRN ×2 (10:05→13:33)
[2017-08-21] MEDS: Ciprofloxacin in D5W 400 MG in Premix Bag 1 BAG IV SCH ×4 (10:05→20:55)
[2017-08-21] MEDS: Enoxaparin 40 MG/0.4 ML Syringe SUBCUT SCH (23:21)
[2017-08-22] MEDS: metroNIDAZOLE/Normal Saline 500 MG in Premix Bag 1 BAG IV SCH (06:16)
[2017-08-22] MEDS: Sodium Chloride 0.9% 10 ML Syringe FLUSH PRN ×2 (06:17→09:08)
[2017-08-22 06:54] VITALS: BP 120/83
[2017-08-22] MEDS: Ciprofloxacin in D5W 400 MG in Premix Bag 1 BAG IV SCH ×2 (09:08)
--- NOTE | 2017-08-22 09:47 | PCM.SURGPN ---
- General Info Date of Service: 08/22/17 Functional Status: Reports: Pain Controlled, Tolerating Diet - Review of Systems General: Reports: No Symptoms Gastrointestinal: Reports: No Symptoms - Patient Data Vitals - Most Recent: Last Vital Signs Temp 36.4 C 08/22/17 06:15 Pulse 75 08/22/17 06:15 Resp 18 08/22/17 06:15 BP 120/83 08/22/17 06:15 Pulse Ox 93 L 08/22/17 06:15 Weight - Most Recent: 101.151 kg I&O - Last 24 Hours: Intake & Output 08/21/17 08/22/17 08/22/17 22:59 06:59 14:59 Intake Total 200 300 Balance 200 300 Lab Results Last 24 Hrs: Laboratory Results - last 24 hr 08/22/17 08/22/17 Range/Units 05:50 05:50 WBC 6.5 (4.5-12.0) X10-3/uL RBC 3.92 L (4.30-5.75) x10(6)uL Hgb 12.7 (11.5-15.5) g/dL Hct 36.7 (30.0-51.3) % MCV 93.6 (80-96) fL MCH 32.5 (27.7-33.6) pg MCHC 34.7 (32.2-35.4) g/dL RDW 12.1 (11.5-15.5) % Plt Count 169 (125-369) X10(3)uL MPV 8.6 (7.4-10.4) fL Neut % (Auto) 71.3 (46-82) % Lymph % (Auto) 18.2 (13-37) % [place] % (Auto) 6.7 (4-12) % Eos % (Auto) 3 (1.0-5.0) % Baso % (Auto) 1 (0-2) % Neut # (Auto) 4.7 (1.6-8.3) # Lymph # (Auto) 1.2 (0.6-5.0) # [place] # (Auto) 0.4 (0.0-1.3) # Eos # (Auto) 0.2 (0.0-0.8) # Baso # (Auto) 0.0 (0.0-0.2) # Sodium 140 (135-145) mmol/L Potassium 3.7 (3.5-5.3) mmol/L Chloride 108 (100-110) mmol/L Carbon Dioxide 26 (21-32) mmol/L BUN 14 (7-18) mg/dL Creatinine 1.3 (0.70-1.30) mg/dL Est Cr Clr Drug Dosing 70.79 mL/min Estimated GFR (MDRD) 58 L (>60) BUN/Creatinine Ratio 10.8 (9-20) Glucose 113 (80-116) mg/dL Calcium 8.4 L (8.6-10.2) mg/dL Med Orders - Current: Current Medications Acetaminophen (Tylenol) 650 mg PO Q4H PRN PRN Reason: Fever Enoxaparin Sodium (Lovenox) 40 mg SUBCUT Q24H [facility] Last Admin: 08/21/17 23:21 Dose: 40 mg Ciprofloxacin/Dextrose 400 mg/ (Premix) 200 mls @ 200 mls/hr IV Q12H [facility] Last Admin: 08/22/17 09:08 Dose: 200 mls/hr Metronidazole 500 mg/ Premix 100 mls @ 100 mls/hr IV Q8H [facility] Last Admin: 08/22/17 06:16 Dose: 100 mls/hr Morphine Sulfate (Morphine) 4 mg IVPUSH Q2H PRN PRN Reason: Pain Last Admin: 08/20/17 16:18 Dose: 4 mg Ondansetron HCl (Zofran) 4 mg IVPUSH Q4H PRN PRN Reason: Nausea/Vomiting Last Admin: 08/21/17 07:21 Dose: 4 mg Sodium Chloride (Saline Flush) 10 ml FLUSH ASDIRECTED PRN PRN Reason: Keep Vein Open Last Admin: 08/22/17 09:08 Dose: 10 ml Zolpidem Tartrate (Ambien) 5 mg PO BEDTIME PRN PRN Reason: Sleep Discontinued Medications Sodium Chloride (Normal Saline) 1,000 mls @ 125 mls/hr IV ASDIRECTED [facility] Last Admin: 08/21/17 02:47 Dose: 125 mls/hr Sodium Chloride (Normal Saline) 1,000 mls @ 999 mls/hr IV .BOLUS ONE Stop: 08/19/17 21:43 Last Admin: 08/19/17 20:05 Dose: 999 mls/hr Potassium Chloride/Dextrose/Sod Cl (D5 1/2 Ns W/ 10 Meq/L Kcl) 1,000 mls @ 125 mls/hr IV Q8H [facility] Last Admin: 08/22/17 00:03 Dose: Not Given Influenza Virus Vaccine (Pharmacy To Dose - Influenza Vaccine) 1 each IM ONETIME ONE Stop: 08/19/17 19:46 Influenza Virus Vaccine (Fluzone Quad [id number]) 60 mcg IM .ONCE ONE Stop: 08/19/17 20:01 - Exam Lungs: Clear to Auscultation, Normal Respiratory Effort Cardiovascular: Regular Rate, Regular Rhythm GI/Abdominal Exam: Normal Bowel Sounds, Soft, Non-Tender - Problem List & Annotations (1) Acute diverticulitis SNOMED Code(s): 778927641 Code(s): K57.92 - DVTRCLI OF INTEST, PART UNSP, W/O PERF OR ABSCESS W/O BLEED Status: Acute Current Visit: Yes Annotation/Comment:: 08/21 resolving - Problem List Review Problem List Initiated/Reviewed/Updated: Yes - My Orders Last 24 Hours: Active Orders 24 hr Category Date Time Status Low Residue [Low Fiber Diet] [DIET] Diet 08/21/17 Lunch Active BASIC METABOLIC PANEL,BMP [CHEM] DAILY Lab 08/23/17 05:11 Ordered BASIC METABOLIC PANEL,BMP [CHEM] DAILY Lab 08/24/17 05:11 Ordered CBC WITH AUTO DIFF [HEME] DAILY Lab 08/23/17 05:11 Ordered CBC WITH AUTO DIFF [HEME] DAILY Lab 08/24/17 05:11 Ordered Convert IV to Saline Lock [OM.PC] Routine Oth 08/21/17 09:39 Ordered Medication Orders Acetaminophen (Tylenol) 650 mg PO Q4H PRN PRN Reason: Fever Enoxaparin Sodium (Lovenox) 40 mg SUBCUT Q24H [facility] Last Admin: 08/21/17 23:21 Dose: 40 mg Admin: 08/20/17 21:14 Dose: 40 mg Admin: 08/19/17 21:23 Dose: 40 mg Ciprofloxacin/Dextrose 400 mg/ (Premix) 200 mls @ 200 mls/hr IV Q12H [facility] Last Admin: 08/22/17 09:08 Dose: 200 mls/hr Infusion: 08/21/17 21:55 Dose: 200 mls/hr Admin: 08/21/17 20:55 Dose: 200 mls/hr Infusion: 08/21/17 11:05 Dose: 200 mls/hr Admin: 08/21/17 10:05 Dose: 200 mls/hr Infusion: 08/20/17 22:12 Dose: 200 mls/hr Admin: 08/20/17 21:12 Dose: 200 mls/hr Infusion: 08/20/17 09:46 Dose: 200 mls/hr Admin: 08/20/17 08:46 Dose: 200 mls/hr Infusion: 08/19/17 22:25 Dose: 200 mls/hr Admin: 08/19/17 21:25 Dose: 200 mls/hr Metronidazole 500 mg/ Premix 100 mls @ 100 mls/hr IV Q8H [facility] Last Admin: 08/22/17 06:16 Dose: 100 mls/hr Infusion: 08/21/17 23:17 Dose: 100 mls/hr Admin: 08/21/17 22:17 Dose: 100 mls/hr Infusion: 08/21/17 14:33 Dose: 100 mls/hr Admin: 08/21/17 13:33 Dose: 100 mls/hr Infusion: 08/21/17 07:07 Dose: 100 mls/hr Admin: 08/21/17 06:07 Dose: 100 mls/hr Infusion: 08/20/17 23:31 Dose: 100 mls/hr Admin: 08/20/17 22:31 Dose: 100 mls/hr Infusion: 08/20/17 14:44 Dose: 100 mls/hr Admin: 08/20/17 13:44 Dose: 100 mls/hr Infusion: 08/20/17 06:48 Dose: 100 mls/hr Admin: 08/20/17 05:48 Dose: 100 mls/hr Infusion: 08/19/17 23:34 Dose: 100 mls/hr Admin: 08/19/17 22:34 Dose: 100 mls/hr Morphine Sulfate (Morphine) 4 mg IVPUSH Q2H PRN PRN Reason: Pain Last Admin: 08/20/17 16:18 Dose: 4 mg Admin: 08/20/17 10:48 Dose: 4 mg Admin: 08/20/17 06:12 Dose: 4 mg Admin: 12/12/17 21:17 Dose: 4 mg Ondansetron HCl (Zofran) 4 mg IVPUSH Q4H PRN PRN Reason: Nausea/Vomiting Last Admin: 08/21/17 07:21 Dose: 4 mg Sodium Chloride (Saline Flush) 10 ml FLUSH ASDIRECTED PRN PRN Reason: Keep Vein Open Last Admin: 08/22/17 09:08 Dose: 10 ml Admin: 08/22/17 06:17 Dose: 10 ml Admin: 08/21/17 13:33 Dose: 10 ml Admin: 08/21/17 10:05 Dose: 10 ml Admin: 08/19/17 22:34 Dose: 10 ml Zolpidem Tartrate (Ambien) 5 mg PO BEDTIME PRN PRN Reason: Sleep - Assessment Assessment (Free Text/Narrative):: from my perspective can go home. - Plan Plan (Free Text/Narrative):: would send home with 10 days of antibiotics. [place] and vaibhav. have follow up with me in 3 wks.
--- NOTE | 2017-08-23 08:28 | DISCH ---
DISCHARGE DATE: 08/22/2017 HOSPITAL COURSE: Ovidio Villa is a 52-year-old male, admitted with complicated abdominal pain and known history of diverticulitis. Chills, sweats, increasing pain. CAT scan showed diverticulitis with some inflammatory changes, but no gross abscess. Hospitalization was indicated. At the hospital, diagnostic studies were performed, was given 2 doses of antibiotic therapy; ciprofloxacin and metronidazole. Pain resolved. Symptoms improved. Stools were satisfactory. At the time of discharge, he was in good condition. White count fell from 14,600 to 6500, hemoglobin 13.6 to 12.7 at discharge. At the time of discharge, abdomen was soft. The patient was comfortable. Discharged home on metronidazole 500 mg t.i.d., ciprofloxacin 500 mg b.i.d. for 10 days duration. Follow up with Dr. Yip in 2 weeks' time. SURGICAL PROCEDURES: None. CONSULTATION: Dr. Diallo Yip. /[id number] YVES/NAEEM
== END 2017-08-22 11:40 | disposition home or self-care (01) | DRG 244 ==
LOC: FB.MS 19:10
PROVIDERS: ADMIT Emergency Medicine; ATTEND Emergency Medicine
DX: K57.92 Diverticulitis of intestine, part unspecified, without perforation or abscess without bleeding (principal); Z23 Encounter for immunization; G47.33 Obstructive sleep apnea (adult) (pediatric); E78.5 Hyperlipidemia, unspecified; Z85.528 Personal history of other malignant neoplasm of kidney; H54.61 Unqualified visual loss, right eye, normal vision left eye; Z90.5 Acquired absence of kidney; Z79.2 Long term (current) use of antibiotics
CPT/HCPCS: 36415; 80048; 81001; 85025; 90471; 90686; J0744; J1650; J2270; J2405; J7040; J7050